=== PATIENT | male | born 1995 | race Caucasian/White ===

== ENCOUNTER 2017-08-26 17:32 | Emergency (ER) | payer SELFPAY ==
[2017-08-26 17:53] VITALS: BP 139/73
--- NOTE | 2017-08-26 18:08 | UC ---
Knee Pain HPI - HPI Summary HPI Summary: This is an otherwise healthy 21 yo male who presented with c/o R knee pain. He was carrying a heavy load today at work when he knee started to hurt. No acute injury. No feeling of instability. No swelling. - History of Current Complaint Chief Complaint: UCLowerExtremity Stated Complaint: KNEE INJURY Pain Intensity: 5 - Allergies/Home Medications Allergies/Adverse Reactions: Allergies Allergy/AdvReac Type Severity Reaction Status Date / Time No Known Allergies Allergy Verified 08/26/17 17:53 Home Medications: Home Medications NK [No Home Medications Reported] 08/26/17 [History Confirmed 08/26/17] PMH/Surg Hx/FS Hx/Imm Hx Previously Healthy: Yes - Surgical History Surgical History: None - Family History Known Family History: Positive: None - Social History Alcohol Use: Occasionally Substance Use Type: None Smoking Status (MU): Never Smoked Tobacco Review of Systems Constitutional: Negative Skin: Negative Eyes: Negative ENT: Negative Respiratory: Negative Cardiovascular: Negative Gastrointestinal: Negative Genitourinary: Negative Motor: Negative Neurovascular: Negative Musculoskeletal: Arthralgia Neurological: Negative Psychological: Negative Is Patient Immunocompromised?: No All Other Systems Reviewed And Are Negative: Yes Physical Exam Triage Information Reviewed: Yes Appearance: Well-Appearing Vital Signs: Initial Vital Signs Temp 100.1 F 08/26/17 17:50 Pulse 80 08/26/17 17:50 Resp 18 08/26/17 17:50 BP 139/73 08/26/17 17:50 Pulse Ox 100 08/26/17 17:50 Vital Signs Reviewed: Yes ENT Exam: Normal Neck exam: Normal Respiratory Exam: Normal Cardiovascular Exam: Normal Abdominal Exam: Normal Musculoskeletal: Positive: No Edema, ROM Limited @ - R knee, Other: - TTP over posterior knee Neurological Exam: Normal Neurological: Positive: Alert Psychological Exam: Normal Skin Exam: Normal Knee Pain Course/Dx - Course Course Of Treatment: Otherwise healthy male with c/o R knee pain, non-traumatic injury. Exam shows no significant edema. Likely mild sprain/strain. Recommend ice and NSAIDs. - Differential Dx/Diagnosis Differential Diagnosis/HQI/PQRI: Fracture (Closed), Sprain, Strain Provider Diagnoses: 1. Knee sprain - R Discharge - Sign-Out/Discharge Documenting (check all that apply): Discharge/Admit/Transfer - Discharge Plan Condition: Stable Disposition: HOME Patient Education Materials: Knee Sprain (ED) Referrals: No Primary Care Phys,NOPCP [Primary Care Provider] - Additional Instructions: Instructions: 1. Apply ice frequently to the painful area 2. Use ibuprofen 600-800 mg three times daily or naproxen 500 mg twice daily as needed for pain - Billing Disposition and Condition Condition: STABLE Disposition: HOME
== END 2017-08-26 18:14 | disposition home or self-care (01) ==
LOC: UCEAST 17:32
DX: S83.91XA Sprain of unspecified site of right knee, initial encounter (principal); X50.0XXA Overexertion from strenuous movement or load, initial encounter; Y93.9 Activity, unspecified; Y92.9 Unspecified place or not applicable; Y99.0 Civilian activity done for income or pay
CPT/HCPCS: 99201; G0463

== ENCOUNTER 2018-02-14 13:45 | Emergency (ER) | payer OTHER ==
[2018-02-14 14:55] VITALS: BP 124/71
[2018-02-14] MEDS ORDERED: Lidocaine 1%* 5 ML VIAL INJ ONE (16:18)
[2018-02-14] MEDS ORDERED: Tetan/Diph/Pertus SYR(Tdap)* 0.5 ML SYR(BOOSTRIX) use SYR IM ONE (16:18)
--- NOTE | 2018-02-14 16:51 | UC ---
Laceration HPI - HPI Summary HPI Summary: 22-year-old male presents with laceration to his left forearm. States occurred at work today approximately 11:30 when he accidentally cut it on a piece of rebar. Bleeding controlled with direct pressure. Unsure of last tetanus. - History Of Current Complaint Chief Complaint: UCLaceration Stated Complaint: ARM LAC Hx Obtained From: Patient Laceration Location: Arm Mechanism Of Injury: Sharp Trauma Onset/Duration: Sudden Onset Severity: Mild Pain Intensity: 2 Aggravating Factors: Nothing - Allergies/Home Medications Allergies/Adverse Reactions: Allergies Allergy/AdvReac Type Severity Reaction Status Date / Time No Known Allergies Allergy Verified 02/14/18 14:50 PMH/Surg Hx/FS Hx/Imm Hx Previously Healthy: Yes - Denies significant past medical history - Surgical History Surgical History: None - Family History Known Family History: Positive: None - Social History Occupation: Employed Full-time Lives: With Family Alcohol Use: None Substance Use Type: None Smoking Status (MU): Never Smoked Tobacco - Immunization History Most Recent Tetanus Shot: Unknown Review of Systems Constitutional: Negative Skin: Other - See HPI Motor: Negative Neurovascular: Negative Musculoskeletal: Negative Is Patient Immunocompromised?: No All Other Systems Reviewed And Are Negative: Yes Physical Exam Triage Information Reviewed: Yes Appearance: Well-Appearing, No Pain Distress, Well-Nourished Vital Signs: Initial Vital Signs Temp 98.8 F 02/14/18 14:51 Pulse 73 02/14/18 14:51 Resp 16 02/14/18 14:51 BP 124/71 02/14/18 14:51 Pulse Ox 100 02/14/18 14:51 Vital Signs Reviewed: Yes Respiratory: Positive: No respiratory distress Cardiovascular: Positive: Pulses Normal, Brisk Capillary Refill Musculoskeletal Exam: Normal Neurological: Positive: Alert, Other: - Sensation intact distally Skin: Positive: significant lesion(s) - Approximately 4 cm linear superficial laceration to the ulnar aspect of his mid left forearm. Bleeding controlled. Laceration Repair - Laceration Repair 1 Procedure Summary: Procedure note: Laceration repair left forearm Informed consent was obtained before procedure started and the appropriate timeout was taken. The wound was irrigated copiusly with sterile saline by RN prior to procedure. The area was prepped and draped in the usual sterile fashion. Local anesthesia was achieved using 2.5 ml of lidocaine 1% without epinephrine. The wound was thoroughly cleansed with sterile saline and chlorhexadine solution. Explored under bloodless field. No FB noted. The wound margins were brought into good alignment and 6 interrupted sutures were placed using 5-0 Ethilon. Estimated blood loss was minimal. A dressing was applied to the area. Anticipatory guidance, as well as standard post-procedure care was discussed with patient. Return precautions are given. The patient tolerated the procedure well without complications. Patient is to follow up in 10 days for suture removal and evaluation of the laceration. Description: Linear Laceration Size After Repair: Length (cm) - 3.5 cm Modified For Repair: No Type Injection: Local Anesthesia Used: 1.0% Lido Cleansing Completed Via Routine Prep: Yes Irrigation With Pressure Irrigation Device: Yes Closure Material: Sutures Closure Method: Single Layer Suture Of: Skin Suture Type: Nylon - 5-0 Ethilon Laceration Course/Dx - Course/Dx Course Of Treatment: 22 year old male presents with laceration to left forearm. Cut on piece of rebar while at work. Tetanus updated. Wound was thoroughly cleansed and irrigated prior to closure. wound repaired with 6 interrupted sutures using 5-0 Ethilon. Dressing applied. Wound care and warning symptoms reviewed. Patient to return in 10 days for suture removal. Verbalizes understanding and agrees with POC. - Differential Dx - Laceration/Wound Provider Diagnoses: Left forearm laceration Discharge - Sign-Out/Discharge Documenting (check all that apply): Patient Departure All imaging exams completed and their final reports reviewed: No Studies - Discharge Plan Condition: Stable Disposition: HOME Patient Education Materials: Care For Your Stitches (ED), Laceration (ED) Referrals: No Primary Care Phys,NOPCP [Primary Care Provider] - Additional Instructions: Leave the dressing that was applied in the clinic in place for the next 24 hours. Be sure to keep this clean and dry. After 24 hours you may remove the dressing and shower and wash your hands as normal. Avoid submerging you hand under water such as in taking a bath, swimming, or washing dishes until the sutures are removed. You should apply some antibiotic ointment such as Bacitracin to the wound and cover with a clean gauze dressing. This dressing should be changed at least once a day or any time it becomes wet or soiled. Your tetanus was updated in the clinic today. Be sure to contact your primary care provider to let them know so that your records can be updated. The numbing medication used to repair your laceration will begin to wear off in about 3-4 hours. You may use acetaminophen (Tylenol) or ibuprofen (Advil, Motrin ) according to directions as needed for pain. Return here in 10 days for suture removal. Watch for signs of infection including fever greater than 100.5 F, redness that spreads, swelling of the hand, pain that is not managed with pain medication, numbness or tingling in the hand or fingers, or pus draining from the wound. Seek immediate medical attention should any of these occur. - Billing Disposition and Condition Condition: STABLE Disposition: Home
== END 2018-02-14 17:00 | disposition home or self-care (01) ==
LOC: UCEAST 13:45
DX: S51.812A Laceration without foreign body of left forearm, initial encounter (principal); W26.8XXA Contact with other sharp object(s), not elsewhere classified, initial encounter; Y92.9 Unspecified place or not applicable; Y99.0 Civilian activity done for income or pay
CPT/HCPCS: 12001; 12002; 90715; 99211; G0463